=== PATIENT | female | born 1975 | race American Indian/Alaskan Native ===

== ENCOUNTER 2016-09-17 08:48 | Emergency (ER) | payer OTHER ==
[2016-09-17 08:49] VITALS: BMI 45.8
[2016-09-17 09:00] VITALS: BP 115/77; TEMP 98.2
[2016-09-17] MEDS ORDERED: Bacitracin 500 Units/gm Oint Foilpak UD ONE ×2 (09:44→10:25)
--- NOTE | 2016-09-17 10:17 | RAD ---
PROCEDURE: Right Foot Radiographs. HISTORY: toe injured yesterday COMPARISON: None. FINDINGS: BONES: There is no evidence of acute fracture or dislocation. There is well defined lytic bony lesion at the proximal portion of the 3rd metatarsal bone likely benign. JOINTS: Normal. SOFT TISSUES: Mild soft tissue swelling. OTHER FINDINGS: None. IMPRESSION: No evidence of acute fracture or dislocation. Well defined lytic bony lesion seen at the proximal portion of the 3rd metatarsal bone of uncertain etiology and may represent benign tumor/ lesion. If clinically warranted further assessment by MRI may be obtained.
[2016-09-17] MEDS ORDERED: Bacitracin 500 Units/gm Oint Foilpak UD TOP ONE (10:22)
--- NOTE | 2016-09-17 10:26 | C.PDOC ---
History Of Present Illness Pt hit her right 4th toe against a metal door. Time Seen by Provider: 09/17/16 09:34 Chief Complaint (Nursing): Lower Extremity Problem/Injury History Per: Patient Onset/Duration Of Symptoms: Days (1) Severity: Mild Additional History Per: Prior Records - Ankle/Foot Description Of Injury: Struck Against Object Feet: 1 - Abrasion. Pain. Past Medical History Reviewed: Historical Data, Nursing Documentation, Vital Signs Vital Signs: Last Vital Signs Temp 98.2 F 09/17/16 08:58 Pulse 75 09/17/16 08:58 Resp 20 09/17/16 08:58 BP 115/77 09/17/16 08:58 Pulse Ox 96 09/17/16 08:58 - Medical History PMH: Fractures (RIGHT ARM ), HTN, Sleep Apnea (DOES NOT KNOW C PAP SETTINGS) Surgical History: Endoscopy - [facility] Procedures ESOPHAGOGASTRODUODENOSCOPY [EGD] W/CLOSED BIOPSY (06/10/14) LAPAROSCOPIC REPAIR OF DIAPHRAGMATIC HRN, ABDOMINAL APPROACH (12/27/14) LAPAROSCOPIC ROBOTIC ASSISTED PROCEDURE (12/27/14) LAPAROSCOPIC VERTICAL (SLEEVE) GASTRECTOMY (12/27/14) OTHER ENDOSCOPY OF SM INTEST (12/27/14) Family History: States: Unknown Family Hx - Social History Hx Tobacco Use: No Hx Alcohol Use: No Hx Substance Use: No - Immunization History Hx Tetanus Toxoid Vaccination: Yes Hx Influenza Vaccination: No Hx Pneumococcal Vaccination: No Review Of Systems Except As Marked, All Systems Reviewed And Found Negative. Constitutional: Negative for: Fever, Weakness Cardiovascular: Negative for: Chest Pain Respiratory: Negative for: Shortness of Breath Gastrointestinal: Negative for: Vomiting, Abdominal Pain Musculoskeletal: Negative for: Neck Pain, Leg Pain Neurological: Negative for: Weakness, Numbness, Seizures, Altered Mental Status Physical Exam - Physical Exam Appears: Non-toxic, No Acute Distress Skin: Normal Color, Warm, Dry Head: Atraumatic, Normacephalic Eye(s): bilateral: PERRL, EOMI Neck: Normal ROM, Supple Extremity: Normal ROM, Tenderness (Right 4th toe), Capillary Refill (wnl), No Deformity, Other (Abrasion to dorsum of right 4th toe) Pulses: Right Dorsalis Pedis: Normal Neurological/Psych: Oriented x3, Normal Motor, Normal Sensation ED Course And Treatment O2 Sat by Pulse Oximetry: 96 Pulse Ox Interpretation: Normal - Other Rad Right 4th toe x-rays X-Ray: Viewed By Me, Read By Radiologist Interpretation: IMPRESSION: No evidence of acute fracture or dislocation. Well defined lytic bony lesion seen at the proximal portion of the 3rd metatarsal bone of uncertain etiology and may represent benign tumor/ lesion. If clinically warranted further assessment by MRI may be obtained. Reassessment Condition: Improved Disposition Counseled Patient/Family Regarding: Studies Performed, Diagnosis, Need For Followup, Rx Given - Disposition Referrals: Rush Lopez [Medical Doctor] - Podiatry Clinic [Outside] Disposition: HOME/ ROUTINE Disposition Time: 10:27 Condition: IMPROVED Additional Instructions: Follow up with your doctor for further evaluation and treatment. Return to the ER if you develop redness, swelling, pus drainage, worsening of symptoms or if you have any other concerns. Prescriptions: Cephalexin [Keflex] 500 mg PO TID #15 capsule Instructions: Abrasion (ED) - Clinical Impression Clinical Impression: Abrasion of fourth toe, right, Lytic lesion of bone on x-ray
[2016-09-17 10:38] VITALS: PULSE 72; RESP 18; O2SAT 99
== END 2016-09-17 10:39 | disposition home or self-care (01) ==
LOC: C.ER 08:48
DX: S90.414A Abrasion, right lesser toe(s), initial encounter (principal); W22.09XA Striking against other stationary object, initial encounter; Y92.9 Unspecified place or not applicable; Y99.9 Unspecified external cause status; M89.9 Disorder of bone, unspecified

== ENCOUNTER 2017-01-20 08:55 | Emergency (ER) | payer OTHER ==
[2017-01-20 08:56] VITALS: BMI 45.8
[2017-01-20 09:06] VITALS: BP 117/75; PULSE 77; RESP 18; TEMP 97.9; O2SAT 99
--- NOTE | 2017-01-20 10:03 | C.PDOC ---
History Of Present Illness 41 yo female c/o left foot pain for 2 weeks. denies direct trauma but notes she works out a lot and believes that caused the injury. No change in sensation. Also notes she has an itchy rash on her feet "for a long time", tried OTC medication without relief. Time Seen by Provider: 01/20/17 09:13 Chief Complaint (Nursing): Lower Extremity Problem/Injury History Per: Patient History/Exam Limitations: no limitations Onset/Duration Of Symptoms: Days Current Symptoms Are (Timing): Still Present Past Medical History Vital Signs: Last Vital Signs Temp 97.9 F 01/20/17 09:06 Pulse 77 01/20/17 09:06 Resp 18 01/20/17 09:06 BP 117/75 01/20/17 09:06 Pulse Ox 99 01/20/17 10:03 - Medical History PMH: Fractures (RIGHT ARM ), HTN, Sleep Apnea (DOES NOT KNOW C PAP SETTINGS) Surgical History: Endoscopy - [facility] Procedures ESOPHAGOGASTRODUODENOSCOPY [EGD] W/CLOSED BIOPSY (06/10/14) LAPAROSCOPIC REPAIR OF DIAPHRAGMATIC HRN, ABDOMINAL APPROACH (12/27/14) LAPAROSCOPIC ROBOTIC ASSISTED PROCEDURE (12/27/14) LAPAROSCOPIC VERTICAL (SLEEVE) GASTRECTOMY (12/27/14) OTHER ENDOSCOPY OF SM INTEST (12/27/14) Family History: States: Unknown Family Hx - Social History Hx Tobacco Use: No Hx Alcohol Use: No Hx Substance Use: No - Immunization History Hx Tetanus Toxoid Vaccination: Yes Hx Influenza Vaccination: No Hx Pneumococcal Vaccination: No Review Of Systems Except As Marked, All Systems Reviewed And Found Negative. Musculoskeletal: Positive for: Foot Pain Skin: Positive for: Rash Physical Exam - Physical Exam Appears: Well, Non-toxic, No Acute Distress Skin: Warm, Dry, Rash ((+) bl plantar aspect of feet: dry scaly rash , no erythema, no discharge, no vesicles) Head: Atraumatic, Normacephalic Eye(s): bilateral: Normal Inspection, EOMI Nose: Normal Neck: Normal, Normal ROM, Supple Chest: Symmetrical Respiratory: No Accessory Muscle Use Extremity: Normal ROM, Tenderness (dorsal aspect of left foot , no swelling, FROM), No Calf Tenderness, Capillary Refill (< 2 sec), No Swelling Pulses: Left Dorsalis Pedis: Normal, Right Dorsalis Pedis: Normal Neurological/Psych: Oriented x3, Normal Speech, Normal Motor, Normal Sensation Gait: Steady ED Course And Treatment O2 Sat by Pulse Oximetry: 99 - Other Rad Foot XR X-Ray: Viewed By Me, Read By Radiologist Interpretation: Accession No. : [id number]. Patient Name / ID : MARIANELA GRESHAM / [id number]. Exam Date : 01/20/2017 09:52:40 ( Approved ). Study Comment : Sex / Age : F / 41Y. Creator : Yesi Shi MD. Dictator : Cable Way Operator : Appeals Assistant : Yesi Shi MD. Approver2 : Report Date : 01/20/2017 10:25:29. My Comment : . PROCEDURE: Left Foot Radiographs. HISTORY: pain. COMPARISON: None available. FINDINGS: BONES: No acute displaced fracture. Well corticated fragment involving the medial cuneiform seen on lateral view consistent with remote injury. JOINTS: No dislocation. SOFT TISSUES: Soft tissue swelling. No evidence of radiopaque foreign body. OTHER FINDINGS: None. IMPRESSION: Soft tissue swelling. No acute displaced fracture identified. If symptoms persist, or if there is continued clinical concern, x-ray follow-up in 7-10 days should be considered. Progress Note: Pt refused pain medication. Dicussed prevention of tinea and instructed to follo wup with ortho in 1-2 days. Disposition - Disposition Disposition: HOME/ ROUTINE Disposition Time: 10:01 Condition: STABLE Additional Instructions: Rest, ice and elevate the area. Keep area clean, cool and dry. Follow up with PMD in 1-2 days for re-evaluation. Prescriptions: Clotrimazole 1% Cream [Lotrimin 1%] 1 appl TP BID #1 tube Instructions: Foot Sprain (ED) Forms: [employer] ([place] Leone[place]) - Clinical Impression Clinical Impression: Tinea pedis, Foot sprain
--- NOTE | 2017-01-20 10:27 | RAD ---
PROCEDURE: Left Foot Radiographs. HISTORY: pain COMPARISON: None available. FINDINGS: BONES: No acute displaced fracture. Well corticated fragment involving the medial cuneiform seen on lateral view consistent with remote injury. JOINTS: No dislocation. SOFT TISSUES: Soft tissue swelling. No evidence of radiopaque foreign body. OTHER FINDINGS: None. IMPRESSION: Soft tissue swelling. No acute displaced fracture identified. If symptoms persist, or if there is continued clinical concern, x-ray follow-up in 7-10 days should be considered.
== END 2017-01-20 10:08 | disposition home or self-care (01) ==
LOC: C.ER 08:55
DX: S93.602A Unspecified sprain of left foot, initial encounter (principal); X58.XXXA Exposure to other specified factors, initial encounter; B35.3 Tinea pedis

== ENCOUNTER 2017-12-24 17:55 | Emergency (ER) | payer OTHER ==
[2017-12-24 17:55] VITALS: BMI 45.8
[2017-12-24 18:14] VITALS: BP 114/84; PULSE 88; RESP 20; TEMP 98.8; O2SAT 99
--- NOTE | 2017-12-24 18:53 | C.PDOC ---
History Of Present Illness 42yo female, with history of chronic knee pain, comes to ER with vague complaints of bilateral knee pain. Patient states the knees "have been bothering me for years" but have worsened since she started a "bootcamp" exercise regimen. She denies any new injuries or trauma to the knee. Patient states she does not follow up with a PMD or an orthopedist despite having chronic knee pain. She denies any weakness, numbness or tingling to the lower extremities. Time Seen by Provider: 12/24/17 18:19 Chief Complaint (Nursing): Lower Extremity Problem/Injury History Per: Patient Onset/Duration Of Symptoms: Persistent Additional History Per: Patient - Knee Alleviating Factor(s): denies: OTC Pain Medication Past Medical History Reviewed: Historical Data, Nursing Documentation, Vital Signs Vital Signs: Last Vital Signs Temp 98.8 F 12/24/17 18:11 Pulse 88 12/24/17 18:11 Resp 20 12/24/17 18:11 BP 114/84 12/24/17 18:11 Pulse Ox 99 12/24/17 19:13 - Medical History PMH: Fractures (RIGHT ARM ), HTN, Sleep Apnea (DOES NOT KNOW C PAP SETTINGS) Surgical History: Endoscopy - [facility] Procedures ESOPHAGOGASTRODUODENOSCOPY [EGD] W/CLOSED BIOPSY (06/10/14) LAPAROSCOPIC REPAIR OF DIAPHRAGMATIC HRN, ABDOMINAL APPROACH (12/27/14) LAPAROSCOPIC ROBOTIC ASSISTED PROCEDURE (12/27/14) LAPAROSCOPIC VERTICAL (SLEEVE) GASTRECTOMY (12/27/14) OTHER ENDOSCOPY OF SM INTEST (12/27/14) Family History: States: No Known Family Hx, Unknown Family Hx - Social History Hx Tobacco Use: No Hx Alcohol Use: Yes Hx Substance Use: No - Immunization History Hx Tetanus Toxoid Vaccination: No Hx Influenza Vaccination: No Hx Pneumococcal Vaccination: No Review Of Systems Musculoskeletal: Positive for: Other (bilateral knee pain) Neurological: Negative for: Weakness, Numbness Physical Exam - Physical Exam Appears: Non-toxic, No Acute Distress Skin: Normal Color Extremity: Normal ROM (FROM at bilateral knees), No Tenderness, No Pedal Edema, No Calf Tenderness, Capillary Refill (< 2 seconds), No Deformity, No Swelling Pulses: Left Dorsalis Pedis: Normal, Right Dorsalis Pedis: Normal Neurological/Psych: Oriented x3, Normal Motor, Normal Sensation ED Course And Treatment O2 Sat by Pulse Oximetry: 99 (RA) Pulse Ox Interpretation: Normal Medical Decision Making Medical Decision Making: Impression: Chronic knee pain Discussed extensively with patient that patient needs to stop strenuous exercise which is exacerbating her chronic knee pain. Patient also informed that an XR study will only show bones and cannot rule out soft tissue injury; patient instructed on need for follow up with orthopedist for further evaluation. Patient offered Toradol IM for pain relief. [id number] Patient has eloped form the facility Disposition - Disposition Referrals: Colin Little III, MD [Staff Provider] - Disposition: ELOPEMENT - ER ONLY Disposition Time: 18:40 Condition: STABLE Forms: [employer] (T[place]anian) - Clinical Impression Clinical Impression: Chronic pain of both knees - PA / NEURODIAGNOSTIC TECHNOLOGIST / Resident Statement MD/DO has reviewed & agrees with the documentation as recorded. - Scribe Statement The provider has reviewed the documentation as recorded by the Isaura [place] Provider Attestation: All medical record entries made by the Isaura were at my direction and personally dictated by me. I have reviewed the chart and agree that the record accurately reflects my personal performance of the history, physical exam, medical decision making, and the department course for this patient. I have also personally directed, reviewed, and agree with the discharge instructions and disposition.
== END 2017-12-24 18:33 | disposition left against medical advice (07) ==
LOC: C.ER 17:55
DX: G89.29 Other chronic pain (principal); M25.562 Pain in left knee; M25.561 Pain in right knee

== ENCOUNTER 2018-10-24 23:47 | Emergency (ER) | payer SELFPAY, BC | END 2018-10-25 01:08 | disposition home or self-care (01) | LOC: C.ER 23:47 ==